=== PATIENT | male | born 1955 | race Caucasian/White ===

== ENCOUNTER → 2019-11-10 | Outpatient (CLI) | payer MEDICARE ==
[~2019-11-10] MED LIST: IOPAMIDOL 370 MG/ML 200 ML INFUS..BTL INJ ONE; SODIUM CHLORIDE 0.9% 50ML 50 ML ONE
[2019-11-10 12:54] LABS: BLOOD UREA NITROGEN 10 mg/dL (7-26); BUN/CREATININE RATIO 12 (6-25); CREATININE, SERUM 0.82 mg/dL (0.72-1.25); EST GLOMERULAR FILTRATION RATE > 60 ML/MIN (60-)
--- NOTE | 2019-11-11 10:07 | Diagnostic Imaging Report ---
EXAMINATION: CT of the lumbar spine with contrast. HISTORY: Fluid collection at surgical site, status post spinal fusion, swelling, chronic lumbar radiculopathy COMPARISON: None available TECHNIQUE: Multidetector helical axial images were obtained with contrast from L1 to S1. The images were reconstructed using bone and soft tissue algorithms and were viewed in axial, sagittal, and coronal planes. Intravenous contrast: 100 mL of Isovue-370 Dose modulation, iterative reconstruction, and/or weight based adjustment of the mA/kV was utilized to reduce the radiation dose to as low as reasonably achievable. FINDINGS: Postoperative changes: Bilateral thoracolumbar posterolateral fusion extending from the visualized T10 (perhaps higher) down to the sacrum/S2 (bilateral sacroiliac screws), with bilateral transpedicular screws in adequate position throughout. Probable solid fusion, diffuse osteopenia limits evaluation of bone bridging formation. Intervertebral metallic cage at L2-3 and L3-L4, no well-visualized fusion. Disc replacement at L4-5 and L5-S1, with fusion at both levels. Decompressive laminectomy from L2 down to L5. Streak artifact from metallic hardware limits the evaluation of the spinal canal content, foramina and laminectomy site. Large approximately 17 x 3 x 12 cm fluid collection in the subcutaneous tissues of the dorsal lumbar midline, is not clear if this fluid collection is connected to the spinal canal/thecal sac given above-mentioned artifact. Likely epidural catheter enters through the right L1-L2 interlaminar region, the most cephalic visualized segment is seen in on the right side of spinal canal at the T9-T10 level. Alignment: Straightening of the lumbar lordosis. Minimal retrolisthesis at T11-T12, T12-L1, L1-L2 and L2-L3 as well as minimal anterolisthesis at L3-L4. Vertebral bodies: Diffuse osteoporosis. Minimal chronic anterior wedging of the T10 and T11 vertebral bodies. Paraspinal soft tissues: Atrophy of the paraspinal muscles. Subcutaneous tissues above mentioned fluid collection. IMPRESSION: 1. Extensive postoperative changes to include solid posterior fusion from partially visualized T10 to the sacroiliac regions. Interbody fusion from L2-L3 to L5-S1 as detailed above and decompressive laminectomy from L2 to L5. No hardware loosening or fracture. 2. Large fluid collection in the subcutaneous tissues along the dorsal midline, cannot determine if the fluid collection is connected to the spinal canal/thecal sac due to streak artifact from hardware, which prevents the evaluation of the spinal canal content/laminectomy sites. 3. Diffuse osteoporosis. Mild chronic anterior wedging of the T10 and T11 vertebral bodies. Signed by: Dr. Anne-Marie Calle M.D. on 11/11/2019 10:05 AM
== END ==
LOC: CT 11:57
PROVIDERS: ATTEND Neurological Surgery
DX: T88.8XXA Other specified complications of surgical and medical care, not elsewhere classified, initial encounter (principal); Z98.1 Arthrodesis status; R60.9 Edema, unspecified; M54.16 Radiculopathy, lumbar region
CPT/HCPCS: 36415; 72132; 82565; 84520; Q9967

== ENCOUNTER → 2019-11-16 | Outpatient (CLI) | payer MEDICARE ==
[~2019-11-16] MED LIST changes: +HYDROCODONE/APAP 10MG-325MG TAB ONE; -IOPAMIDOL 370 MG/ML 200 ML INFUS..BTL INJ ONE; -SODIUM CHLORIDE 0.9% 50ML 50 ML ONE
[2019-11-16 13:57] LABS: HEMOGLOBIN 10.8 g/dL (14.0-18.0)
[2019-11-16 14:16] LABS: INR 0.99; PROTHROMBIN TIME 13.7 seconds (11.9-14.5)
[2019-11-16 14:17] LABS: PARTIAL THROMBOPLASTIN TIME 31.8 seconds (23.8-35.5)
--- NOTE | 2019-11-16 16:19 | Diagnostic Imaging Report ---
PROCEDURE: Drainage catheter placement Procedural Personnel Attending physician(s): Shaun Moeller MD Fellow physician(s): None Resident physician(s): None Advanced practice provider(s): None Pre-procedure diagnosis: Postoperative seroma Post-procedure diagnosis: Same Indication: Seroma Additional clinical history: None Complications: No immediate complications. IMPRESSION: Percutaneous placement of a 8 Wolof drainage catheter into lumbar spine subcutaneous seroma, yielding 250 mL of clear yellow fluid. Plan: Drainage catheter to gravity. Consider for removal when <10cc daily output for 3-5 consecutive days. PROCEDURE SUMMARY: - Soft tissue drainage catheter placement under ultrasound guidance - Additional procedure(s): None PROCEDURE DETAILS: Pre-procedure Consent: Informed consent for the procedure including risks, benefits and alternatives was obtained and time-out was performed prior to the procedure. Preparation: The site was prepared and draped using maximal sterile barrier technique including cutaneous antisepsis. Anesthesia/sedation Level of anesthesia/sedation: No sedation Anesthesia/sedation administered by: Independent trained observer under attending supervision with continuous monitoring of the patient?s level of consciousness and physiologic status Total intra-service sedation time (minutes): N/A Drainage catheter placement The patient was positioned prone. Initial imaging was performed. Local anesthesia was administered. The fluid collection was accessed using trocar technique and a drainage catheter was placed. Position of the drainage catheter within the fluid collection was confirmed. - Initial imaging findings: Superficial subcutaneous seroma - Drainage catheter placed: 8Fr Uresil - External catheter securement: Non-absorbable suture - Post-drainage imaging findings: Near-complete drainage of the fluid collection Contrast Contrast agent: None Contrast volume (mL): 0 Radiation Dose None. Ultrasound only. Additional Details Additional description of procedure: None Equipment details: None Specimens removed: Aspirated fluid was sent for analysis. Estimated blood loss (mL): Less than 10 Standardized report: [email or web address] Attestation Signer name: Shaun Moeller MD I attest that I was present for the entire procedure. I reviewed the stored images and agree with the report as written. Signed by: Shaun Moeller MD on 11/16/2019 4:17 PM
== END ==
LOC: US 13:34
PROVIDERS: ATTEND Neurological Surgery
DX: M96.842 Postprocedural seroma of a musculoskeletal structure following a musculoskeletal system procedure (principal); M81.8 Other osteoporosis without current pathological fracture
CPT/HCPCS: 36415; 75989; 85014; 85049; 85610; 85730; 87070; 87205; 88112; 88305